=== PATIENT | male | born 1960 | race Caucasian/White ===

== ENCOUNTER → 2024-12-19 13:45 | Outpatient (REF) | payer OTHER, SELFPAY | LOC: PAVMRI 13:45 | PROVIDERS: ATTENDING PHYSICIAN Internal Medicine Hematology & Oncology; FAMILY PHYSICIAN Family Medicine | DX: C7A.098 Malignant carcinoid tumors of other sites (principal); C61 Malignant neoplasm of prostate; E11.65 Type 2 diabetes mellitus with hyperglycemia; D51.3 Other dietary vitamin B12 deficiency anemia | CPT/HCPCS: 70553; A9575 ==